=== PATIENT | female | born 1960 | race Caucasian/White ===

== ENCOUNTER → 2016-11-22 | Outpatient (CLI) | payer MEDICARE ==
--- NOTE | 2016-11-22 09:29 | Diagnostic Imaging Report ---
PROCEDURE: US abdomen complete. TECHNIQUE: Multiple real-time grayscale images were obtained over the abdomen in various projections. INDICATION: History of cirrhosis COMPARISON: None FINDINGS: The liver is somewhat echogenic and has a lobular contour consistent with the given history of cirrhosis. No discrete focal hepatic abnormality is suspected. The common bile duct is not well seen, however, no gross biliary dilatation is demonstrated. The pancreas is not well seen. Doppler imaging demonstrates hepatofugal/abnormal flow within the main portal vein, likely related to portal hypertension. There are multiple stones in the gallbladder neck. There is no gallbladder wall thickening or pericholecystic fluid. There is no sonographic Benito's sign. The spleen is enlarged measuring about 14 cm in length. No focal splenic abnormality is seen. The abdominal aorta and inferior vena cava are not well demonstrated. The right kidney measures 8.7 cm in length and left kidney measures 10.5 cm in length. No gross renal mass or obstructive change is seen. There is no ascites. IMPRESSION: 1. Cirrhotic liver without discrete focal mass demonstrated. There is reversal of the normal flow in the main portal vein suggestive of portal hypertension. 2. Cholelithiasis without evidence of cholecystitis 3. No additional abnormality is seen, however, evaluation of the common bile duct, pancreas, abdominal aorta and inferior vena cava is limited. Dictated by: Dictated on workstation # [id number]
== END ==
LOC: RAD 08:39
PROVIDERS: ATTEND Nurse Practitioner Family
DX: K70.30 Alcoholic cirrhosis of liver without ascites (principal); K80.20 Calculus of gallbladder without cholecystitis without obstruction
CPT/HCPCS: 76700